=== PATIENT | male | born 1940 | race Caucasian/White ===

== ENCOUNTER → 2018-09-05 08:03 | Outpatient (CLI) | payer MEDICARE, OTHER, SELFPAY ==
--- NOTE | 2018-09-05 | DI.ECHO.S_ITS ---
[place] [facility]---------+ [facility] +---------+ : : [address] : [address] : : : : [id number] : : : : Phone: [phone] +---------+ Echocardiogram Report + + :Name: STEPHANIE KINCAID Study Date: 09/05/2018 Height: 70 in : :[facility] Weight: 187 lb : : Gender: Male BSA: 2.0 m2 : :: 1940 Age: 78 yrs BP: 140/80 mmHg: :Reason For Study: Cardiomyopathy, Non-Ischemic : :Ordering Physician: Shine : :Lana Fulton Performed By: Xenia Esquivel : + + Interpretation Summary Left ventricular wall thickness is mildly increased. Left ventricular ejection fraction is estimated to be 45 +/- 5%. There is a mild dyssynchronous contraction pattern, consistent with a conduction abnormality. Mid to distal inferior, inferolateral hypokinesis. The left atrium is severely dilated. There is mild to moderate mitral regurgitation. There is mild tricuspid regurgitation. Procedure: A two-dimensional transthoracic echocardiogram with color flow and Doppler was performed. The study quality was technically adequate. Comparison is made with the echocardiogram of 07/08/2017. The heart rate ranged between 46-79 bpm during the study. Left Ventricle: Left ventricular wall thickness is mildly increased. The left ventricle is moderately dilated. There is no ventricular septal defect visualized. There is no thrombus. Left ventricular ejection fraction is estimated to be 45 +/- 5%. There has been no significant change since the previous exam. There is a mild dyssynchronous contraction pattern, consistent with a conduction abnormality. Mid to distal inferior, inferolateral hypokinesis. Diastolic parameters suggest a pseudonormalization pattern, consistent with probable elevated filling pressures. Right Ventricle: The right ventricle is normal in size and function. Atria: The left atrium is severely dilated. Right atrial size is normal. There is no Doppler evidence for an interatrial shunt. Mitral Valve: The mitral valve leaflets appear mildly thickened, but open well. There is mild to moderate mitral regurgitation. Aortic Valve: The aortic valve is trileaflet. The aortic valve is slightly calcified. There is no hemodynamically significant valvular aortic stenosis. There is mild aortic regurgitation. Tricuspid Valve: The tricuspid valve leaflets are thin and pliable. There is mild tricuspid regurgitation. Pulmonic Valve: The pulmonic valve is not well seen, but is grossly normal. There is mild pulmonic regurgitation. Great Vessels: The aortic root is mildly dilated. The ascending aorta is moderately enlarged. The aortic arch is mildly enlarged. The IVC is of normal diameter and collapses less than 50% with a sniff. This suggests a right atrial pressure of 8 mm Hg. Pericardium/ Pleura There is no pericardial effusion. MMode/2D Measurements & Calculations LVIDd: 6.4 cm LVOT diam: 2.2 cm LVIDs: 3.8 cm Ao root diam: 4.0 cm FS: 40.4 % Aortic Jxn: 3.1 cm EPSS: 1.1 cm asc Aorta Diam: 4.2 cm IVSd: 1.2 cm Ao Arch Diam (Prox Trans): 3.4 cm LVPWd: 1.4 cm LV alcala. diameter/BSA (cm/m^2): 3.2 LV sys. diameter/BSA (cm/m^2): 1.9 LA A2 area: 32.0 cm2 RA long axis: 5.9 cm LA A4 area: 31.0 cm2 RA area: 18.0 cm2 LA length (vol): 6.3 cm RA vol: 47.0 ml LA vol: 133.6 ml RA : 23.2 ml/m2 LA vol index: 65.9 ml/m2 IVC diam: 1.7 cm RVD1 (basal): 3.8 cm RVD2 (mid): 2.9 cm TAPSE: 2.4 cm Doppler Measurements & Calculations Ao V2 max: 196.9 cm/sec LVOT Max Morgan: 117.9 cm/sec Ao V2 mean: 139.2 cm/sec LV V1 max P.6 mmHg Ao max P.5 mmHg LV V1 VTI: 22.2 cm Ao mean P.7 mmHg RAFAEL(I,D): 2.0 cm2 Ao V2 VTI: 40.9 cm RAFAEL(V,D): 2.2 cm2 sev ratio: 0.54 RAFAEL indexed to BSA (cm^2/m^2): 1.0 AI P1/2t: 677.3 msec AI dec slope: 212.6 cm/sec2 MV E max morgan: 95.7 cm/sec TR max morgan: 282.3 cm/sec MV A max morgan: 98.1 cm/sec TR max P.9 mmHg MV E/A: 0.97 PA V2 max: 100.6 cm/sec Med Peak E' Morgan: 5.5 cm/sec PA V2 mean: 60.9 cm/sec E/E' med: 17.5 PA mean P.7 mmHg Lat Peak E' Morgan: 9.5 cm/sec PA Accel Time: 0.08 sec E/E' lat: 10.1 E/e' average: 13.8 MV dec time: 0.10 sec MV P1/2t: 27.2 msec MR ERO: 0.06 cm2 MV P1/2t max morgan: 95.8 cm/sec MR flow rate: 31.7 cm3/sec MVA(P1/2t): 8.1 cm2 MR PISA radius: 0.30 cm SV(LVOT): 83.1 ml Reading Physician:04:17 PM
== END ==
PROVIDERS: Family Provider Family Medicine; PCP Family Medicine; Visit Provider Internal Medicine Cardiovascular Disease
DX: I08.3 Combined rheumatic disorders of mitral, aortic and tricuspid valves (principal); I42.8 Other cardiomyopathies
CPT/HCPCS: 93306

== ENCOUNTER → 2019-10-29 13:21 | Outpatient (CLI) | payer MEDICARE, OTHER, SELFPAY ==
--- NOTE | 2019-10-29 | DI.ECHO.S_ITS ---
[facility]---------+ [facility] +---------+ : : [address] : [address] : : : : [id number] : : : : Phone: [phone] +---------+ Echocardiogram Report + + :Name: STEPHANIE KINCAID Study Date: 10/29/2019 Height: 72 in : :[facility] Weight: 191 lb : : Gender: Male BSA: 2.1 m2 : :: 1940 Age: 79 yrs BP: 142/90 mmHg: :Reason For Study: Cardiomyopathy : : Performed By: LRF : + + Interpretation Summary 1) Moderately enlarged left ventricle with moderately to severely reduced systolic function (EF 30-35%). 2) Normal right ventricular size with mildly reduced function. There is a pacemaker lead in the right ventricle. 3) There is probable mild aortic stenosis (valve area 1.6cm2, mean gradient 8mmHg, severity ratio 0.53) 4) There is mild to moderate aortic regurgitation. 5) There is moderate mitral regurgitation. 6) The ascending aorta is mildly enlarged at 4.2cm. 7) Compared to the Echo done 04/24/2019, mitral regurgitation has decreased from moderate-severe to moderate on this study. Procedure: A two-dimensional transthoracic echocardiogram with color flow and Doppler was performed. The study quality was technically adequate. Comparison is made with the echocardiogram of 04/24/2019. The patient has a paced rhythm. Left Ventricle: The left ventricle is moderately dilated. Left ventricular wall thickness is mildly increased. The ejection fraction is estimated to be 30-35%. Diastolic function could not be accurately assessed due to paced rhythm. Right Ventricle: There is a pacemaker lead in the right ventricle. The right ventricle is normal size. Right ventricular systolic function is mildly reduced. Atria: The left atrium is moderately dilated. Right atrial size is normal. There is no Doppler evidence for an interatrial shunt. Mitral Valve: The mitral valve leaflets appear mildly thickened, but open well. There is moderate mitral regurgitation. There are multiple regurgitant jets present. Aortic Valve: The aortic valve is trileaflet. There is mild aortic valve sclerosis. There is mild aortic stenosis. There is mild to moderate aortic regurgitation. Tricuspid Valve: The tricuspid valve leaflets are thin and pliable. Right ventricular systolic pressure is estimated to be 34 mmHg plus the clinically estimated CVP which cannot be estimated on this exam. There is mild tricuspid regurgitation. Pulmonic Valve: The pulmonic valve is normal in structure and function. There is a trace or physiologic amount of pulmonic regurgitation. Great Vessels: The aortic root is borderline dilated. The ascending aorta is mildly enlarged. The inferior vena cava was not visualized. Pericardium/ Pleura There is no pericardial effusion. MMode/2D Measurements & Calculations LVIDd: 6.0 cm LVOT diam: 1.9 cm LVIDs: 5.0 cm Ao root diam: 4.1 cm FS: 15.4 % asc Aorta Diam: 4.2 cm EPSS: 1.9 cm Ao Arch Diam (Prox Trans): 3.4 cm IVSd: 1.4 cm LVPWd: 1.2 cm LV alcala. diameter/BSA (cm/m^2): 2.8 LV sys. diameter/BSA (cm/m^2): 2.4 LA A2 area: 31.6 cm2 RA long axis: 5.7 cm LA A4 area: 21.4 cm2 RA area: 18.8 cm2 LA length (vol): 5.7 cm RA vol: 53.3 ml LA vol: 101.2 ml RA : 25.5 ml/m2 LA vol index: 48.5 ml/m2 RVD1 (basal): 3.2 cm RVD2 (mid): 3.2 cm TAPSE: 1.6 cm Doppler Measurements & Calculations Ao V2 max: 191.6 cm/sec LVOT Max Morgan: 94.5 cm/sec Ao V2 mean: 135.3 cm/sec LV V1 max P.6 mmHg Ao max P.7 mmHg LV V1 VTI: 20.4 cm Ao mean P.2 mmHg RAFAEL(I,D): 1.6 cm2 Ao V2 VTI: 38.3 cm RAFAEL(V,D): 1.4 cm2 sev ratio: 0.53 RAFAEL indexed to BSA (cm^2/m^2): 0.75 AI P1/2t: 578.4 msec AI dec slope: 228.0 cm/sec2 MV E max morgan: 86.7 cm/sec TR max morgan: 287.9 cm/sec MV A max morgan: 105.0 cm/sec TR max P.6 mmHg MV E/A: 0.83 PA V2 max: 72.6 cm/sec Med Peak E' Morgan: 4.3 cm/sec PA V2 mean: 48.0 cm/sec E/E' med: 20.3 PA mean P.0 mmHg Lat Peak E' Morgan: 5.0 cm/sec PA Accel Time: 0.08 sec E/E' lat: 17.4 E/e' average: 18.9 MV dec time: 0.22 sec MV P1/2t: 66.8 msec MV P1/2t max morgan: 87.2 cm/sec SV(LVOT): 59.7 ml MVA(P1/2t): 3.3 cm2 Reading Physician:04:22 PM
== END ==
PROVIDERS: Family Provider Family Medicine; PCP Family Medicine; Referring Provider Family Medicine; Visit Provider Physician Assistant
DX: I08.3 Combined rheumatic disorders of mitral, aortic and tricuspid valves (principal); I42.8 Other cardiomyopathies; I77.89 Other specified disorders of arteries and arterioles; Z95.0 Presence of cardiac pacemaker
CPT/HCPCS: 93306

== ENCOUNTER → 2021-02-07 13:25 | Outpatient (CLI) | payer MEDICARE, OTHER, SELFPAY ==
--- NOTE | 2021-02-07 | DI.ECHO.S_ITS ---
[facility]---------+ [facility] +---------+ : : [address] : [address] : : : : [id number] : : : : Phone: [phone] +---------+ Echocardiogram Report + + :Name: STEPHANIE KINCAID Study Date: 02/07/2021 Height: 72 in : :[facility] ReadingLocation: Weight: 185 lb : : Gender: Male BSA: 2.1 m2 : :: 1940 Age: 80 yrs BP: 147/79 mmHg: :Referring: ADOLFO FULTON : + + Interpretation Summary 1) Milldly enlarged left ventricle with moderately reduced systolic function (EF 35-40%). 2) Mildly increased right ventricular size with normal function. There is a pacemaker lead in the right ventricle. 3) There is probable mild aortic stenosis (valve area 1.3cm2, mean gradient 11mmHg, severity ratio 0.43) 4) There is mild aortic regurgitation. 5) There is moderate to severe mitral regurgitation. 6) The ascending aorta is mildly enlarged at 4.3cm. 7) Compared to the Echo done 10/29/2019, LVEF has improved from 30-35% to 35-40% on this study and mitral regurgitation has worsened from moderate to moderate- severe on this study. Procedure: A two-dimensional transthoracic echocardiogram with color flow and Doppler was performed in limited views only. The study quality was technically adequate. Comparison is made with the echocardiogram of 10/29/2019. The heart rate ranged between 66-77 bpm during the study. Left Ventricle: The left ventricle is mildly dilated. The estimated left ventricular end diastolic volume is 167 ml. Proximal septal thickening is noted. The ejection fraction is estimated to be 35-40%. There is a mild dyssynchronous contraction pattern due to the paced rhythm. Right Ventricle: The right ventricle is mildly dilated. There is a pacemaker lead in the right ventricle. The right ventricular systolic function is normal. Atria: The left atrium is severely dilated. Right atrial size is normal. There is a catheter/pacemaker lead seen in the right atrium. There is no Doppler evidence for an interatrial shunt. Mitral Valve: The mitral valve chordae are thickened and/or calcified. The mitral valve leaflets appear mildly thickened, but open well. There is moderate to severe mitral regurgitation. The mitral regurgitant jet is eccentrically directed. Aortic Valve: There is mild aortic valve sclerosis. The aortic valve is mildly calcified. There is mild aortic stenosis. The peak aortic velocity is 2.28 m/sec. The aortic valve mean gradient is 11 mmHg. The calculated aortic valve area is 1.3 cm2. There is mild aortic regurgitation. Tricuspid Valve: The tricuspid valve is normal in structure and function. There is mild tricuspid regurgitation. Right ventricular systolic pressure is estimated to be 26 mmHg plus the clinically estimated CVP which cannot be estimated on this exam. Pulmonic Valve: The pulmonic valve leaflets are thin and pliable; valve motion is normal. There is mild pulmonic regurgitation. Great Vessels: The aortic root is mildly dilated. The ascending aorta is mildly enlarged. The inferior vena cava was not well visualized. Pericardium/ Pleura There is no pericardial effusion. There is no pleural effusion. MMode/2D Measurements & Calculations LVIDd: 6.4 cm LVOT diam: 2.0 cm LVIDs: 5.0 cm Ao root diam: 3.8 cm FS: 22.0 % asc Aorta Diam: 4.3 cm EPSS: 1.3 cm IVSd: 1.0 cm LVPWd: 0.94 cm LV alcala. diameter/BSA (cm/m^2): 3.1 LV sys. diameter/BSA (cm/m^2): 2.4 LA A2 area: 33.8 cm2 RA long axis: 6.6 cm LA A4 area: 26.7 cm2 RA area: 20.9 cm2 LA length (vol): 6.1 cm RA vol: 56.0 ml LA vol: 126.0 ml RA : 27.2 ml/m2 LA vol index: 61.1 ml/m2 RVD1 (basal): 4.3 cm TAPSE: 2.0 cm Doppler Measurements & Calculations Ao V2 max: 228.9 cm/sec LVOT Max Morgan: 97.5 cm/sec Ao V2 mean: 155.3 cm/sec LV V1 max P.8 mmHg Ao max P.0 mmHg LV V1 VTI: 20.8 cm Ao mean P.9 mmHg RAFAEL(I,D): 1.3 cm2 Ao V2 VTI: 48.8 cm RAFAEL(V,D): 1.3 cm2 sev ratio: 0.43 RAFAEL indexed to BSA (cm^2/m^2): 0.64 AI P1/2t: 340.2 msec AI dec slope: 384.9 cm/sec2 MV E max morgan: 110.3 cm/sec TR max morgan: 255.0 cm/sec MV A max morgan: 117.1 cm/sec TR max P.0 mmHg MV E/A: 0.94 PA V2 max: 106.5 cm/sec Med Peak E' Morgan: 4.7 cm/sec PA V2 mean: 68.8 cm/sec E/E' med: 23.3 PA mean P.1 mmHg Lat Peak E' Morgan: 7.8 cm/sec PA pr(Accel): 37.9 mmHg E/E' lat: 14.2 E/e' average: 18.7 MV dec time: 0.26 sec MR ERO: 0.22 cm2 MR PISA: 3.6 cm2 SV(LVOT): 64.1 ml MR flow rate: 131.1 cm3/sec MR PISA radius: 0.75 cm Reading Physician:09:23 AM
== END ==
PROVIDERS: Family Provider Family Medicine; PCP Internal Medicine; Referring Provider Internal Medicine Cardiovascular Disease; Visit Provider Internal Medicine Cardiovascular Disease
DX: I08.3 Combined rheumatic disorders of mitral, aortic and tricuspid valves (principal); I77.810 Thoracic aortic ectasia; I42.8 Other cardiomyopathies; Z95.0 Presence of cardiac pacemaker
CPT/HCPCS: 93306

== ENCOUNTER → 2021-07-26 15:39 | Outpatient (CLI) | payer MEDICARE, OTHER, SELFPAY ==
--- NOTE | 2021-07-26 15:41 | DI.ECHO.S_ITS ---
[facility]---------[facility] +---------+ : : [address] : [address] : : : : [id number] : : : : Phone: [phone] : : [phone] +---------+ Echocardiogram Report + + :Name: STEPHANIE KINCAID Study Date: 07/26/2021 Height: 73 in : :[facility] ReadingLocation: Weight: 180 lb : : Gender: Male BSA: 2.1 m2 : :: 1940 Age: 81 yrs BP: 139/89 mmHg: :Reason For Study: NONRHEUMATIC MITRAL INSUFFICIENCY : :Ordering Physician: MARIA L, : :ADOLFO Performed By: Carli Quiñones : :Referring: ADOLFO FULTON : + + Interpretation Summary 1) Milldly enlarged left ventricle with moderately reduced systolic function (EF 35-40%). 2) Mildly increased right ventricular size with mildly reduced function. There is a pacemaker lead in the right ventricle. 3) There is mild to moderate aortic stenosis (valve area 1.2cm2, mean gradient 8.5mmHg, severity ratio 0.35) 4) There is mild to moderate aortic regurgitation. 5) There is moderate to severe mitral regurgitation that is directed anteriorly. 6) There is mild to moderate tricuspid regurgitation. 7) The ascending aorta is mildly enlarged at 4.3cm. 8) Compared to the Echo done 02/07/2021, no significant change in mitral regurgitation but aortic and tricuspid regurgitations are slightly worse on this study. Procedure: A two-dimensional transthoracic echocardiogram with color flow and Doppler was performed. The study quality was technically adequate. Comparison is made with the echocardiogram of . The patient has a paced rhythm. The heart rate ranged between 90-93 bpm during the study. Left Ventricle: The left ventricle is mildly dilated. The estimated left ventricular end diastolic volume is 159 ml. Left ventricular wall thickness is mildly increased. The ejection fraction is estimated to be 35-40%. Diastolic function could not be accurately assessed due to paced rhythm. Right Ventricle: The right ventricle is moderately dilated. There is a pacemaker lead in the right ventricle. Right ventricular systolic function is mildly reduced. Atria: The left atrium is severely dilated. The right atrium is mildly dilated. There is no Doppler evidence for an interatrial shunt. Mitral Valve: The mitral valve chordae are thickened and/or calcified. The mitral valve leaflets appear mildly thickened, but open well. There is mild mitral annular calcification. There is moderate to severe mitral regurgitation. The mitral regurgitant jet is eccentrically directed. Aortic Valve: The aortic valve is trileaflet. The aortic valve is mildly calcified. There is mild aortic valve sclerosis. There is mild to moderate aortic stenosis. There is mild to moderate aortic regurgitation. Tricuspid Valve: The tricuspid valve leaflets are thin and pliable. There is mild to moderate tricuspid regurgitation. The right ventricular systolic pressure is estimated to be at least 38 mmHg based on an estimated right atrial pressure of 3 mm Hg. Pulmonic Valve: There is trace pulmonic regurgitation. Great Vessels: The aortic root is borderline dilated. The ascending aorta is mildly enlarged. The IVC is of normal diameter and collapses greater than 50% with a sniff. This suggests a low right atrial pressure of 3 mm Hg. Pericardium/ Pleura There is no pericardial effusion. There is no pleural effusion. MMode/2D Measurements & Calculations LVIDd: 6.3 cm LVOT diam: 2.0 cm LVIDs: 5.3 cm Ao root diam: 3.9 cm FS: 17.1 % asc Aorta Diam: 4.3 cm IVSd: 1.2 cm Ao Arch Diam (Prox Trans): 3.5 cm LVPWd: 0.94 cm LV alcala. diameter/BSA (cm/m^2): 3.1 LV sys. diameter/BSA (cm/m^2): 2.6 LA A2 area: 34.9 cm2 RA long axis: 6.4 cm LA A4 area: 27.6 cm2 RA area: 23.1 cm2 LA length (vol): 6.8 cm RA vol: 70.8 ml LA vol: 121.0 ml RA : 34.4 ml/m2 LA vol index: 58.8 ml/m2 IVC diam: 2.0 cm RVD1 (basal): 4.8 cm TAPSE: 1.5 cm Doppler Measurements & Calculations Ao V2 max: 199.8 cm/sec LVOT Max Morgan: 75.9 cm/sec Ao V2 mean: 132.5 cm/sec LV V1 max P.3 mmHg Ao max P.2 mmHg LV V1 VTI: 13.1 cm Ao mean P.5 mmHg RAFAEL(I,D): 1.1 cm2 Ao V2 VTI: 37.3 cm RAFAEL(V,D): 1.2 cm2 sev ratio: 0.35 RAFAEL indexed to BSA (cm^2/m^2): 0.52 AI P1/2t: 385.6 msec AI dec slope: 345.1 cm/sec2 MV E max morgan: 118.5 cm/sec TR max morgan: 296.3 cm/sec MV A max morgan: 2.1 cm/sec TR max P.1 mmHg MV E/A: 56.2 PA V2 max: 87.9 cm/sec Med Peak E' Morgan: 5.6 cm/sec PA V2 mean: 56.8 cm/sec E/E' med: 21.0 PA mean P.5 mmHg Lat Peak E' Morgan: 6.6 cm/sec PA pr(Accel): 48.2 mmHg E/E' lat: 17.9 E/e' average: 19.5 MV dec time: 0.23 sec MVA(VTI): 1.4 cm2 MV V2 mean: 88.9 cm/sec SV(LVOT): 39.9 ml MV mean P.6 mmHg MV V2 VTI: 28.9 cm Reading Physician:09:49 AM
== END ==
PROVIDERS: Family Provider Family Medicine; PCP Internal Medicine; Referring Provider Internal Medicine Cardiovascular Disease; Visit Provider Internal Medicine Cardiovascular Disease
DX: I08.3 Combined rheumatic disorders of mitral, aortic and tricuspid valves (principal); I77.89 Other specified disorders of arteries and arterioles; Z95.0 Presence of cardiac pacemaker
CPT/HCPCS: 93306

== ENCOUNTER → 2022-03-30 15:00 | Outpatient (CLI) | payer MEDICARE, OTHER, SELFPAY ==
--- NOTE | 2022-03-30 15:01 | DI.ECHO.S_ITS ---
[facility]---------[facility] +---------+ : : [address] : [address] : : : : [id number] : : : : Phone: [phone] : [phone] +---------+ Echocardiogram Report + + :Name: STEPHANIE KINCAID Study Date: 03/30/2022 Height: 72 in : :[facility] ReadingLocation: Weight: 167 lb : : Gender: Male BSA: 2.0 m2 : :: 1940 Age: 81 yrs BP: 117/79 mmHg: :Reason For Study: MITRAL INSUFFICIENCY : :Ordering Physician: MARIA L, : :ADOLFO Performed By: Carli Quiñones : :Referring: ADOLFO FULTON : + + Interpretation Summary 1) Milldly enlarged left ventricle with mildly to moderately reduced systolic function (EF 40-45%). 2) Mildly increased right ventricular size with normal function. There is a pacemaker lead in the right ventricle. 3) There is mild to moderate aortic stenosis (valve area 1.2cm2, mean gradient 11.2mmHg, severity ratio 0.39). 4) There is mild to moderate aortic regurgitation. 5) There is moderate to severe mitral regurgitation that is directed anteriorly. 6) The ascending aorta is mildly enlarged at 4.3cm. 7) Compared to the Echo done 07/26/2021, LVEF has improved from 35-40% to 40- 45% on this study. Procedure: A two-dimensional transthoracic echocardiogram with color flow and Doppler was performed. The study quality was technically good. Comparison is made with the echocardiogram of 07/26/2021. The heart rate ranged between 65-82 bpm during the study. Left Ventricle: The left ventricle is mildly dilated. There is mild concentric left ventricular hypertrophy. The estimated left ventricular end diastolic volume is 180 ml. The ejection fraction is estimated to be 40-45%. There is mild to moderate global hypokinesis of the left ventricle. Right Ventricle: The right ventricle is mildly dilated. There is a pacemaker lead in the right ventricle. The right ventricular systolic function is normal. Atria: The left atrium is severely dilated. Right atrial size is normal. There is no Doppler evidence for an interatrial shunt. Mitral Valve: The mitral valve leaflets appear mildly thickened, but open well. There is mild mitral annular calcification. The mitral valve chordae are thickened and/or calcified. There is moderate to severe mitral regurgitation. The mitral regurgitant jet is eccentrically directed. Aortic Valve: The aortic valve is trileaflet. The aortic valve is mildly calcified. There is mild to moderate aortic stenosis. The peak aortic velocity is 2.3 m/sec. The aortic valve mean gradient is 11 mmHg. The calculated aortic valve area is 1.1 cm2. There is mild to moderate aortic regurgitation. Tricuspid Valve: The tricuspid valve leaflets are thin and pliable. There is mild tricuspid regurgitation. The right ventricular systolic pressure is estimated to be at least 30 mmHg based on an estimated right atrial pressure of 3 mm Hg. Pulmonic Valve: The pulmonic valve leaflets are thin and pliable; valve motion is normal. There is no pulmonic valvular regurgitation. Great Vessels: The aortic root is borderline dilated. The ascending aorta is mildly enlarged. The IVC is of normal diameter and collapses greater than 50% with a sniff. This suggests a low right atrial pressure of 3 mm Hg. Pericardium/ Pleura There is no pericardial effusion. There is no pleural effusion. MMode/2D Measurements & Calculations LVIDd: 6.2 cm LVOT diam: 2.0 cm LVIDs: 4.9 cm Ao root diam: 4.1 cm FS: 21.7 % asc Aorta Diam: 4.3 cm EPSS: 1.2 cm Ao Arch Diam (Prox Trans): 3.5 cm IVSd: 1.1 cm LVPWd: 1.1 cm LV alcala. diameter/BSA (cm/m^2): 3.2 LV sys. diameter/BSA (cm/m^2): 2.5 LA A2 area: 32.7 cm2 RA long axis: 6.4 cm LA A4 area: 23.5 cm2 RA area: 18.1 cm2 LA length (vol): 6.0 cm RA vol: 43.4 ml LA vol: 109.2 ml RA : 22.0 ml/m2 LA vol index: 55.4 ml/m2 IVC diam: 1.8 cm RVD1 (basal): 4.5 cm RVD2 (mid): 3.8 cm TAPSE: 1.9 cm Doppler Measurements & Calculations Ao V2 max: 232.7 cm/sec LVOT Max Morgan: 81.5 cm/sec Ao V2 mean: 153.3 cm/sec LV V1 max P.7 mmHg Ao max P.7 mmHg LV V1 VTI: 17.5 cm Ao mean P.2 mmHg RAFAEL(I,D): 1.2 cm2 Ao V2 VTI: 44.9 cm RAFAEL(V,D): 1.1 cm2 sev ratio: 0.39 RAFAEL indexed to BSA (cm^2/m^2): 0.60 AI P1/2t: 373.6 msec AI dec slope: 343.5 cm/sec2 MV E max morgan: 93.9 cm/sec TR max morgan: 257.9 cm/sec MV A max morgan: 103.4 cm/sec TR max P.6 mmHg MV E/A: 0.91 PA V2 max: 109.5 cm/sec Med Peak E' Morgan: 5.7 cm/sec PA V2 mean: 70.7 cm/sec E/E' med: 16.6 PA mean P.3 mmHg Lat Peak E' Morgan: 5.9 cm/sec PA pr(Accel): 43.0 mmHg E/E' lat: 15.9 E/e' average: 16.2 MV dec time: 0.18 sec SV(LVOT): 53.3 ml Reading Physician:02:24 PM
== END ==
PROVIDERS: Family Provider Family Medicine; PCP Student in an Organized Health Care Education/Training Program; Referring Provider Internal Medicine Cardiovascular Disease; Visit Provider Internal Medicine Cardiovascular Disease
DX: I08.3 Combined rheumatic disorders of mitral, aortic and tricuspid valves; I77.810 Thoracic aortic ectasia
CPT/HCPCS: 93306

== ENCOUNTER → 2023-01-14 08:47 | Outpatient (CLI) | payer MEDICARE, OTHER, SELFPAY ==
--- NOTE | 2023-01-14 | DI.ECHO.S_ITS ---
[facility]+ : : [address] : [place] : : : : [id number] : : : : Phone: [phone]+ Echocardiogram Report + + :Name: STEPHANIE KINCAID Study Date: 01/14/2023 Height: 72 in : :[facility] ReadingLocation: Weight: 161 lb : : Gender: Male BSA: 1.9 m2 : :: 1940 Age: 82 yrs BP: 124/70 mmHg: :Reason For Study: OTHER CARDIOMYOPATHIES : :Ordering Physician: MARIA L, : :ADOLFO Performed By: CRISTA MCKEE : :Referring: ADOLFO FULTON : + + Interpretation Summary 1) Mildly enlarged left ventricle with mildly to moderately reduced systolic function (EF 40-45%). 2) Mildly increased right ventricular size with normal function. There is a pacemaker lead in the right ventricle. 3) There is mild to moderate aortic stenosis (valve area 1.5cm2, mean gradient 20mmHg, severity ratio 0.46). 4) There is mild to moderate aortic regurgitation. 5) There is moderate to severe mitral regurgitation that is directed anteriorly. 6) The ascending aorta is mildly enlarged at 4.1cm. 7) Compared to the Echo done 03/30/2022, no significant change. Procedure: A two-dimensional transthoracic echocardiogram with color flow and Doppler was performed. The study quality was technically adequate. Comparison is made with the echocardiogram of 03/30/2022. The heart rate ranged between 33-130 bpm during the study. Left Ventricle: The left ventricle is mildly dilated. There is mild concentric left ventricular hypertrophy. Left ventricular systolic function is mild to moderately reduced. The ejection fraction is estimated to be 40-45%. This is unchanged compared to the previous study. Right Ventricle: The right ventricle is mildly dilated. There is a pacemaker lead in the right ventricle. The right ventricular systolic function is normal. Atria: The left atrium is severely dilated. The right atrium is mildly dilated. There is no Doppler evidence for an interatrial shunt. Mitral Valve: The mitral valve leaflets appear mildly thickened, but open well. There is mild mitral annular calcification. The mitral valve chordae are thickened and/or calcified. There is moderate to severe mitral regurgitation. The mitral regurgitant jet is eccentrically directed. Aortic Valve: The aortic valve is trileaflet. The aortic valve is mildly calcified. There is mild to moderate aortic stenosis. The peak aortic velocity is 3 m/sec. The aortic valve mean gradient is 20 mmHg. There is mild to moderate aortic regurgitation. Tricuspid Valve: The tricuspid valve is normal. There is mild tricuspid regurgitation. The right ventricular systolic pressure is estimated to be at least 42 mmHg based on an estimated right atrial pressure of 8 mm Hg. Pulmonic Valve: The pulmonic valve leaflets are thin and pliable; valve motion is normal. There is no pulmonic valvular regurgitation. Great Vessels: The aortic root is borderline dilated. The ascending aorta is mildly enlarged. The IVC is dilated (diameter is greater than 2.1 cm) yet it collapses greater than 50% with a sniff. This suggests a right atrial pressure of 8 mm Hg. Pericardium/ Pleura There is no pericardial effusion. There is no pleural effusion. MMode/2D Measurements & Calculations LVIDd: 5.8 cm LVOT diam: 2.1 cm LVIDs: 4.8 cm Ao root diam: 3.9 cm FS: 17.2 % asc Aorta Diam: 4.1 cm IVSd: 1.0 cm LVPWd: 1.1 cm LV alcala. diameter/BSA (cm/m^2): 3.0 LV sys. diameter/BSA (cm/m^2): 2.5 LA A2 area: 30.8 cm2 RA long axis: 6.7 cm LA A4 area: 34.2 cm2 LA length (vol): 6.5 cm LA vol: 137.8 ml LA vol index: 70.9 ml/m2 LVLs ap4: 8.0 cm LVLd ap2: 9.5 cm LVLs ap2: 8.0 cm TAPSE_phl: 2.2 cm Doppler Measurements & Calculations Ao V2 max: 301.0 cm/sec LVOT Max Morgan: 128.0 cm/sec Ao V2 mean: 213.0 cm/sec LV V1 max P.6 mmHg Ao max P.2 mmHg LV V1 VTI: 28.0 cm Ao mean P.0 mmHg RAFAEL(I,D): 1.6 cm2 Ao V2 VTI: 61.3 cm RAFAEL(V,D): 1.5 cm2 sev ratio: 0.46 RAFAEL indexed to BSA (cm^2/m^2): 0.81 AI P1/2t: 419.9 msec AI dec slope: 332.0 cm/sec2 MV E max morgan: 104.0 cm/sec TR max morgan: 290.0 cm/sec MV A max morgan: 90.7 cm/sec TR max P.6 mmHg MV E/A: 1.1 PA V2 max: 96.1 cm/sec Med Peak E' Morgan: 5.2 cm/sec PA V2 mean: 73.9 cm/sec E/E' med: 19.9 PA mean P.0 mmHg Lat Peak E' Morgan: 7.3 cm/sec PA pr(Accel): 26.8 mmHg E/E' lat: 14.3 E/e' average: 17.1 MV dec time: 0.16 sec MV P1/2t: 48.1 msec MVA(VTI): 2.4 cm2 MV V2 mean: 64.7 cm/sec MV P1/2t max morgan: 107.0 cm/sec MV mean P.0 mmHg MVA(P1/2t): 4.6 cm2 MV V2 VTI: 40.7 cm SV(LVOT): 97.0 ml AV P1/2t-pr_phl: 501.0 msec AV VR_phl: 0.43 RAFAEL(VTI)/BSA_phl: 0.82 MV P1/2t-pr_phl: 93.0 msec Reading Physician:05:39 PM
== END ==
PROVIDERS: Family Provider Family Medicine; PCP Student in an Organized Health Care Education/Training Program; Referring Provider Internal Medicine Cardiovascular Disease; Visit Provider Internal Medicine Cardiovascular Disease
DX: I08.3 Combined rheumatic disorders of mitral, aortic and tricuspid valves (principal); I77.89 Other specified disorders of arteries and arterioles; I77.810 Thoracic aortic ectasia; I42.8 Other cardiomyopathies
CPT/HCPCS: 93306

== ENCOUNTER → 2023-10-31 11:10 | Outpatient (CLI) | payer MEDICARE, OTHER, SELFPAY ==
[2023-10-31 12:30] LABS: NT-proBNP (BNP-Adult 18+) 11100 pg/mL (<450)
[2023-10-31 12:37] LABS: Procalcitonin 0.07 ng/mL (<0.5)
== END ==
PROVIDERS: Family Provider Family Medicine; PCP Student in an Organized Health Care Education/Training Program; Referring Provider Internal Medicine; Visit Provider Internal Medicine
DX: J84.9 Interstitial pulmonary disease, unspecified; C34.92 Malignant neoplasm of unspecified part of left bronchus or lung; J96.01 Acute respiratory failure with hypoxia; I50.31 Acute diastolic (congestive) heart failure
CPT/HCPCS: 36415; 83880; 84145; 99215

== ENCOUNTER 2023-11-28 10:25 | Emergency (ER) | payer MEDICARE, OTHER, SELFPAY ==
[2023-11-28 10:30] VITALS: BP 132/102; PULSE 63; RESP 22; TEMP 36.2; O2SAT 92; BMI 17.6
[2023-11-28 11:24] LABS: Add Manual Diff / Slide Review NO; Basophils Absolute Auto 100 /uL (0-100); Basophils Percent Auto 0.8 % (0-2); Eosinophils Absolute Auto 0 /uL (0-450); Eosinophils Percent Auto 0.4 % (2-4); Hematocrit 28.4 % (41-53); Hemoglobin 9.4 g/dL (13.5-17.5); Lymphocytes Absolute Auto 400 /uL (1100-4500); Mean Corpuscular HGB Conc 33.1 % (30-36); Mean Corpuscular Hemoglobin 30.6 PG (26-34); Mean Corpuscular Volume 92.6 fL (80-100); Monocytes Absolute Auto 400 /uL (0-900); Neutrophils Absolute Auto 6200 /uL (1500-7000); Neutrophils Percent Auto 86.8 % (50-75); Platelet Count 159 X10^3/uL (150-400); Red Blood Cell Count 3.07 X10^6/uL (4.5-5.9); Red Cell Distribution Width 17.7 % (11.6-14.8); White Blood Cell Count 7.2 X10^3/uL (4.5-11.0)
[2023-11-28 11:34] LABS: INR 1.4 (0.9-1.3); Prothrombin Time 16.2 SECONDS (9.4-12.5)
[2023-11-28 11:36] LABS: PTT Partial Thromboplastin Tim 33 SECONDS (25.1-36.5)
[2023-11-28 11:38] LABS: Alanine Aminotransferase 39 IU/L (<50); Albumin 3.4 g/dL (3.5-5.0); Albumin Globulin Ratio 0.9 (1.0-2.8); Alkaline Phosphatase 84 U/L (38-126); Aspartate Aminotransferase 25 IU/L (17-59); Bilirubin Total 1.2 mg/dL (0.2-1.3); Blood Urea Nitrogen 66 mg/dL (9-20); Calcium 8.3 mg/dL (8.4-10.2); Carbon Dioxide 35 mmol/L (22-32); Chloride 106 mmol/L (98-107); Estimated Glomerular Filt Rate > 60 mL/min (>60); Globulin 3.6 g/dL (1.7-4.1); Glucose 98 mg/dL (80-110); HEMOLYSIS < 15 (0-50); Potassium 4.7 mmol/L (3.4-5.1); Sodium 142 mmol/L (137-145)
[2023-11-28 12:46] VITALS: O2SAT 92
[2023-11-28 12:47] VITALS: BP 109/78; PULSE 74; O2SAT 92
[2023-11-28 13:00] VITALS: BP 112/67; PULSE 90; RESP 30; O2SAT 92
--- NOTE | 2023-11-28 13:10 | PC.NURSE ---
Hx A-fib, pr on thinner, pt on home O2, states he uses his humidifier, pt picks his nose often and it bleeds, difficulty stopping the bleeding after he removes internasal scabs.
--- NOTE | 2023-11-28 14:09 | ED_ITS ---
HPI - Epistaxis General Chief complaint: Nasal Problem Stated complaint: Bloody noise , Sleeping , coughing up blood Time Seen by Provider: 11/28/23 13:58 Mode of arrival: Wheelchair History of Present Illness HPI Narrative: Patient here with . Complains left nares epistaxis off and on for last 3 days. Patient does wear constant nasal cannula supplemental oxygen for lung disease. Patient has history of atrial fibrillation and is on Eliquis. Patient has seen Otolaryngology Dr. Cervantes about 5 years ago for throat cancer. Patient does have a med port left chest for chemotherapy. Patient is not bleeding at this time. Site of bleeding is left medial anterior nares. Blood clot seen. There is dried blood in posterior pharynx, this is likely the source of patient's hemoptysis. Related Data Home Medications Medication Instructions Recorded Confirmed acetaminophen 650 mg 650 mg PO Q8H 10/31/23 10/31/23 tablet,extended release (Tylenol 8 Hour) apixaban 5 mg tablet (Eliquis) 5 mg PO BID 10/31/23 10/31/23 beta lwtgqtgp-S-X-lutein-min #29 tab PO 10/31/23 10/31/23 5,000 unit-60 mg-30 unit-2 mg tablet (Macuvite With Lutein) celecoxib 200 mg capsule (Celebrex) 200 mg PO DAILY 10/31/23 10/31/23 diclofenac sodium 1 % topical gel 2 g topical QID 10/31/23 10/31/23 furosemide 20 mg tablet (Lasix) 20 mg PO DAILY 10/31/23 10/31/23 metoprolol succinate 25 mg 12.5 mg PO DAILY 10/31/23 10/31/23 tablet,extended release 24 hr pantoprazole 20 mg tablet,delayed 20 mg PO DAILY 10/31/23 10/31/23 release simvastatin 20 mg tablet 20 mg PO DAILY 10/31/23 10/31/23 sodium chloride 0.65 % nasal spray 1 spray intranasal ONCE 10/31/23 10/31/23 aerosol Previous Rx's Medication Instructions Recorded dapsone 100 mg tablet 100 mg PO DAILY PCP prophylaxis 10/31/23 #30 tabs prednisone 20 mg tablet 60 mg (3 x 20 mg) PO DAILY #90 tabs 10/31/23 Allergies Allergy/AdvReac Type Severity Reaction Status Date / Time Sulfa (Sulfonamide Allergy Unknown HIVES, Verified 11/28/23 10:30 Antibiotics) REDNESS, [SULFA (SULFONAMIDE ITCHING ANTIBIOTICS)] Review of Systems Review of Systems Narrative: GENERAL: negative chills, fatigue, malaise, fever, sweats. HEENT: negative sinus pain, ear pain, sore throat, positive bloody nose RESPIRATORY: negative dyspnea, cough CARDIOVASCULAR: negative chest pain, palpitations GASTROINTESTINAL: negative nausea, vomiting, abdominal pain : negative dysuria, frequency, hematuria MUSCULOSKELETAL: negative muscle or bony pain SKIN: negative rash, skin lesions NEUROLOGIC: negative weakness, numbness ROS Unobtainable: All systems reviewed & are unremarkable except as noted in HPI and below Patient History Social History Smoking Status: Unknown if ever smoked Smoking Status: Unknown if ever smoked alcohol intake frequency: holidays/special occasions only Substance Use Type: does not use Exam Narrative Exam Narrative: GENERAL: in no distress, not toxic not dyspneic HEAD: Normocephalic. EYES: Pupils equal round ENT: Mucous membranes moist. Dried blood posterior pharynx. No active bleeding. Dried blood left nares anteromedial wall. No bleeding in right nares.. NEURO: AOx4. SKIN: Warm and dry PSYCH: Not anxious, is cooperative Initial Vital Signs Initial Vital Signs: Vital Signs Temperature 97.2 F L 11/28/23 10:30 Pulse Rate 63 11/28/23 10:30 Respiratory Rate 22 11/28/23 10:30 Blood Pressure 132/102 H 11/28/23 10:30 Pulse Oximetry 92 11/28/23 10:30 Oxygen Delivery Method Nasal Cannula 11/28/23 10:30 Oxygen Flow Rate 2 11/28/23 10:30 Course Orders Ordered: Discontinued Medications Oxymetazoline HCl (Oxymetazoline Nasal [place] 30 Ml) 2 sprays NASAL NOW ONE Stop: 11/28/23 14:09 Last Admin: 11/28/23 14:27 Dose: 2 sprays Documented By: ABRIL Silver Nitrate/Potassium Nitrate (Silver Nitrate Stick) 2 each TOP NOW ONE Stop: 11/28/23 14:09 Last Admin: 11/28/23 14:27 Dose: 2 each Documented By: ABRIL Vital Signs Vital signs: Vital Signs - 8 hr 11/28/23 10:30 11/28/23 12:46 11/28/23 12:47 Temperature 97.2 F L Pulse Rate 63 74 Respiratory Rate 22 Blood Pressure 132/102 H Pulse Oximetry 92 92 92 Oxygen Delivery Method Nasal Cannula Nasal Cannula Oxygen Flow Rate 2 2 11/28/23 12:47 11/28/23 13:00 11/28/23 13:00 Temperature Pulse Rate 90 Respiratory Rate 30 H Blood Pressure 109/78 112/67 Pulse Oximetry 92 Oxygen Delivery Method Nasal Cannula Oxygen Flow Rate 2 MDM - Epistaxis Lab Data 11/28/23 11:15 11/28/23 11:15 Labs: Lab Results 11/28/23 Range/Units 11:15 WBC 7.2 (4.5-11.0) X10^3/uL RBC 3.07 L (4.5-5.9) X10^6/uL Hgb 9.4 L (13.5-17.5) g/dL Hct 28.4 L (41-53) % MCV 92.6 (80-100) fL MCH 30.6 (26-34) PG MCHC 33.1 (30-36) % RDW 17.7 H (11.6-14.8) % Plt Count 159 (150-400) X10^3/uL Neut % (Auto) 86.8 H (50-75) % Lymph % (Auto) 6.0 L (25-40) % [place] % (Auto) 6.0 (3-14) % Eos % (Auto) 0.4 L (2-4) % Baso % (Auto) 0.8 (0-2) % Neut # (Auto) 6200 (3222-4675) /uL Lymph # (Auto) 400 L (0966-6173) /uL [place] # (Auto) 400 (0-900) /uL Eos # (Auto) 0 (0-450) /uL Baso # (Auto) 100 (0-100) /uL PT 16.2 H (9.4-12.5) SECONDS INR 1.4 H (0.9-1.3) APTT 33 (25.1-36.5) SECONDS Sodium 142 (137-145) mmol/L Potassium 4.7 (3.4-5.1) mmol/L Chloride 106 (98-107) mmol/L Carbon Dioxide 35 H (22-32) mmol/L BUN 66 H (9-20) mg/dL Creatinine 0.97 (0.66-1.25) mg/dL Estimated GFR > 60 (>60) mL/min BUN/Creatinine Ratio 68.0 H (6-22) Glucose 98 (80-110) mg/dL Calcium 8.3 L (8.4-10.2) mg/dL Total Bilirubin 1.2 (0.2-1.3) mg/dL AST 25 (17-59) IU/L ALT 39 (<50) IU/L Alkaline Phosphatase 84 (38-126) U/L Total Protein 7.0 (6.3-8.2) g/dL Albumin 3.4 L (3.5-5.0) g/dL Globulin 3.6 (1.7-4.1) g/dL Albumin/Globulin Ratio 0.9 L (1.0-2.8) MDM Narrative Medical decision making narrative: Patient here with . Complains left nares epistaxis off and on for last 3 days. Patient does wear constant nasal cannula supplemental oxygen for lung disease. Patient has history of atrial fibrillation and is on Eliquis. Patient has seen Otolaryngology Dr. Cervantes about 5 years ago for throat cancer. Patient does have a med port left chest for chemotherapy. Patient is not bleeding at this time. Site of bleeding is left medial anterior nares. Blood clot seen. There is dried blood in posterior pharynx, this is likely the source of patient's hemoptysis. After history and exam CBC PT INR PTT Afrin silver nitrate MDM CC: Bloody nose Complicating co-morbidities: Eliquis Data collected from: Patient and Medical records reviewed: No recent visit for this complaint Differential considered: Includes but not limited to anterior epistaxis Exam documented above, pertinent findings include: Dried blood left naris Lab Test results independently reviewed as above. Pertinent findings: WBC 7.2 hemoglobin 9.4 platelets 159 INR 1.4 Consultations: None indicated at this time Treatments: Afrin Re-evaluations: 3:33 p.m.. I was able to remove clots out of the left nose. Patient feels much better. No active bleeding. Return precautions reviewed with patient. Patient was given ENT phone number to call tomorrow to follow up. Return precautions reviewed and they desire discharge home. Patient is sent home with nasal clamp and Afrin Discussion: Appropriate for discharge home. Exam is reassuring. I was able to remove clots from the nose. No actively during course of stay here after removal of clots. No silver nitrate indicated. I did not see area that needed cautery. Diagnosis: Epistaxis. Discharge Plan Departure Patient Disposition: Home Clinical Impression: Epistaxis Instructions: DI for Nosebleed Activity Restrictions/Additional Instructions: Please call provided [facility] office tomorrow for office appointment within a week for re-evaluation of your bloody nose. Please use clamp if this does reoccur again. But please use the Afrin spray 2 sprays to the nose and then apply the nasal clamp. If it does not resolve within 20 minutes then return to the emergency department. Return if worse if any questions or concerns. Please do not take your Eliquis blood thinner tonight. You may resume tomorrow. When you are having a bloody nose please move the oxygen to your mouth to breathe.. Do not pick your nose. Prescriptions: No Action acetaminophen [Tylenol 8 Hour] 650 mg tablet extended release 650 mg PO Q8H Macuvite With Lutein 5,000-60-30-2 tehz-po-lhwv-mg tablet PO Eliquis 5 mg tablet 5 mg PO BID celecoxib [Celebrex] 200 mg capsule 200 mg PO DAILY diclofenac sodium 1 % gel 2 g topical QID Rx Instructions: apply to single elbow, wrist or hand; for hand includes palm/fingers/back of hand furosemide [Lasix] 20 mg tablet 20 mg PO DAILY metoprolol succinate 25 mg tablet extended release 24 hr 12.5 mg PO DAILY pantoprazole 20 mg tablet,delayed release (DR/EC) 20 mg PO DAILY simvastatin 20 mg tablet 20 mg PO DAILY sodium chloride 0.65 % aerosol,spray 1 spray intranasal ONCE prednisone 20 mg tablet 60 mg PO DAILY Qty: 90 0RF Rx Instructions: take 3 tabs daily for 2 weeks then 2 tabs daily for 1 week then 1 tab daily until otherwise directed dapsone 100 mg tablet 100 mg PO DAILY Qty: 30 1RF Referrals: Constance Johnston MD [Primary Care Provider] - Sin Hutton MD [Physician] - Forrest Spring MD [Physician] - Stand Alone Forms: Patient Portal/API
[2023-11-28] MEDS: SILVER NITRATE STICK 2 EACH TOP (14:27)
[2023-11-28] MEDS: OXYMETAZOLINE NASAL SPRAY 30 ML 2 SPRAYS NASAL (14:27)
[2023-11-28 15:37] VITALS: BP 110/70; PULSE 76; RESP 20; O2SAT 92
== END 2023-11-28 15:46 | disposition home or self-care (01) ==
PROVIDERS: Emergency Provider Emergency Medicine; Family Provider Family Medicine; PCP Student in an Organized Health Care Education/Training Program
DX: R04.0 Epistaxis (principal); Z79.01 Long term (current) use of anticoagulants
CPT/HCPCS: 80053; 85025; 85610; 85730; 99283; 99284